=== PATIENT | male | born 1960 | race Caucasian/White ===

== ENCOUNTER 2016-07-31 09:13 | Day surgery (SDC) | payer OTHER ==
[~2016-07-31 09:13] MED LIST: CEFAZOLIN SODIUM 2 GRAM PREMIX 100 ML IV ONE; CEFAZOLIN SODIUM 2 GRAM PREMIX 100 ML IV PRN; IV START KIT ONE; LACTATED RINGERS 1,000 ML ONE
[2016-07-31] MEDS ORDERED: SODIUM CHLORIDE 0.9% FLUSH 10 ML ONE (10:11)
[2016-07-31] MEDS ORDERED: CEFAZOLIN SODIUM 1,000 MG VIAL ONE (10:11)
[2016-07-31] MEDS ORDERED: BUPIVACAINE 0.5% (PRES FREE) 30 ML VIAL ONE (10:11)
[2016-07-31] MEDS ORDERED: LIDOCAINE 1% (PRES FREE) 30 ML VIAL ONE (10:11)
[2016-07-31] MEDS ORDERED: MIDAZOLAM HCL 5 MG/5 ML VIAL ONE (10:16)
[2016-07-31] MEDS ORDERED: KETAMINE HCL UD SYRINGE 100 MG/2 ML IV ONE (10:22)
[2016-07-31] MEDS ORDERED: PROPOFOL 40 ML IV ONE (10:22)
[2016-07-31] MEDS ORDERED: SPINAL PROCEDURAL TRAY 1 EACH ONE (11:04)
[2016-07-31] MEDS ORDERED: ONDANSETRON 4 MG/2ML 2 ML VIAL ONE (11:10)
[2016-07-31] MEDS ORDERED: PROMETHAZINE HCL 25 MG/ML VIAL IM PRN (11:15)
[2016-07-31] MEDS ORDERED: ATROPINE SULFATE 0.4 MG/1 ML VIAL IV PRN (11:15)
[2016-07-31] MEDS ORDERED: NALOXONE HCL 0.4 MG/ML VIAL IV PRN (11:15)
[2016-07-31] MEDS ORDERED: LACTATED RINGERS 1,000 ML IV SCH (11:15)
[2016-07-31] MEDS ORDERED: ONDANSETRON 4 MG/2ML 2 ML VIAL IV PRN ×2 (11:15→13:33)
[2016-07-31] MEDS ORDERED: FENTANYL 100 MCG/2 ML VIAL IV PRN (11:15)
[2016-07-31] MEDS ORDERED: PROPOFOL 20 ML IV ONE ×2 (11:33→11:36)
[2016-07-31] MEDS ORDERED: KETOROLAC TROMETHAMINE 30 MG/ML 1 ML VIAL ONE (12:27)
[2016-07-31] MEDS ORDERED: MORPHINE SULFATE 2 MG/ML SYRINGE IV PRN (13:33)
[2016-07-31] MEDS ORDERED: OXYCODONE/ACETAMINOPHEN 5/325 MG TABLET ONE ×2 (14:02→18:03)
[2016-07-31] MEDS: OXYCODONE/ACETAMINOPHEN 5/325 MG TABLET PO PRN ×2 (14:04→18:04)
[2016-07-31] MEDS ORDERED: KETOROLAC TROMETHAMINE 30 MG/ML 1 ML VIAL IV PRN (18:30)
--- NOTE | 2016-08-01 01:42 | OP ---
RAYMOND CHARLES [id number] DATE OF OPERATION: July 31, 2016 PREOPERATIVE DIAGNOSIS: Recurrent left inguinal hernia. POSTOPERATIVE DIAGNOSIS: Recurrent left inguinal hernia. PROCEDURE: REPAIR OF RECURRENT LEFT INGUINAL HERNIA WITH REMOVAL OF OLD MESH AND PLACEMENT OF MESH PLUG WITH PATCH. SURGEON: Declan Perkins M.D. ELECTRONICS REPAIR TECHNICIAN: Chito Curiel ANESTHESIA: Tam Patnio.N.Carmen, Spinal. INDICATIONS: This is a 56-year-old male who has had prior bilateral inguinal hernia repair who has a recurrence on the left side who presents for elective repair. DESCRIPTION: With informed consent he was taken to the operating room where a spinal anesthetic was administered. He was then laid supine on the operating room table. The left groin was prepped and draped in a sterile fashion. His prior scar was incised. We ended up having to enlarge this laterally to get to normal tissue. We dissected down through the subcutaneous fat. There was quite a bit of scar tissue above the external oblique. I carefully dissected through this with Metzenbaum scissors. Eventually once we identified the external oblique out laterally and relatively virgin tissue, I opened this with a knife and then carefully dissected medially from this point. There was some mesh directly below the external oblique. I dissected medially to the internal ring. The mesh was not attached down to the shelving edge. It was able to move it out and cephalad. It appeared that there was a direct defect that was able to move the mesh. I decided to remove the old mesh. This was dissected free of the underlying floor of the canal. It was not clear how the mesh went around the cord structures. I was able to dissect the mesh away to the pubic tubercle. There was some mesh left down below the cord structures. I did not try to excise this because I felt it would injure the cord structures. I ended up excising most of the mesh. The direct defect was then scored to get into a preperitoneal plane. I identified the inferior epigastric blood vessels on the lateral aspect of the direct defect. An extra large mesh plug was placed and secured at multiple occasions with #2-0 Vicryl. A flat piece of mesh was then placed. I cut a slit inferiorly on the mesh to accommodate the cord structures. It was sutured to the shelving edge with #2-0 Vicryl lateral to the cord structures. I also sutured it medially to the other piece of mesh and cephalad to the conjoined tendon. It was placed up beneath the external oblique. The wound was irrigated. We appeared to have adequate hemostasis. External oblique was reapproximated with a running #2-0 Vicryl. Then #3-0 Vicryl was used to close the subcutaneous tissues, and the skin was closed with a running subcuticular #4-0 Monocryl. I did put some plain Marcaine into the subcutaneous tissues for postoperative pain control when the spinal wears off. Mastisol and SteriStrips were placed. Sterile dressings were applied. He tolerated the procedure and was taken to the recovery room in stable condition. Note was made that needle, instrument and lap counts were reported as correct at time of closure. cc: Declan Camara M.D.
--- NOTE | 2016-08-03 10:19 | SURGPATH ---
[facility] [address] [place] [id number] Patient Name: RAYMOND CHARLES MR#: [id number] : 1960 Gender: M Specimen #: [id number] Collected: 08/03/2016 Received: 08/03/2016 Reported: 08/03/2016 Submitting Phys: OLIVER GRIJALVA Copy To Phys: [facility] OLIVER DUVALL Clinical History / Pre-Operative Diagnosis: RECURRENT LEFT INGUINAL HERNIA Specimen Source / Surgical Procedure Performed: OLD MESH Interpretation: SOFT TISSUE, LEFT INGUINAL HERNIA, EXCISION: - FIBROADIPOSE CONNECTIVE TISSUE SHOWING NO DIAGNOSTIC ABNORMALITIES ASSOCIATED WITH SYNTHETIC MESHLIKE MATERIAL. - NO EVIDENCE OF MALIGNANCY. Electronically Signed Out Nael Horan M.D., Ph.D. Gross Description: The specimen is received in a formalin filled container labeled with the patient's name and "mass, left inguinal hernia". An irregular portion of synthetic mesh-like material is 11.7 x 4.5 x 0.5 cm. There is a small amount of attached fibroconnective and fatty tissue. Three account manager sales representative sections are submitted in one cassette. Loy Parnell, P.A. Microscopic Description: Examination of a section from the left inguinal hernia soft tissue shows fragments of histologically unremarkable fibroadipose connective tissue. There is no evidence of malignancy. 1: [id number] K40.91
== END 2016-07-31 18:18 | disposition home or self-care (01) ==
LOC: SDC 09:13
PROVIDERS: ATTEND Surgery
PROC: 0YU60JZ Supplement Left Inguinal Region with Synthetic Substitute, Open Approach (ICD-10-PCS; principal; 2016-07-31)
DX: K40.91 Unilateral inguinal hernia, without obstruction or gangrene, recurrent (principal); I10 Essential (primary) hypertension; E78.5 Hyperlipidemia, unspecified; Z86.010 Personal history of colon polyps; G47.39 Other sleep apnea; E07.9 Disorder of thyroid, unspecified
CPT/HCPCS: 93005; 49520; J0690 ×2; A9270 ×2; J1885; J2250; J2405; J7120